=== PATIENT | female | born 1995 | race Caucasian/White ===

== ENCOUNTER 2020-12-19 09:13 | Emergency (ER) | payer SELFPAY ==
[~2020-12-19] VITALS: Ht 175.8 cm; Wt 104.3 kg
--- OUTSIDE RECORDS SUMMARY | 2020-12-19 09:18 | XMS REPORT | Clinical Summary ---
Author Author [facility] Organization [facility] Address Unknown Phone Unavailable Care Team Providers Care Fruit And Vegetable Parer Name Role Phone Tiffanie Rodríguez DO PP Allergies Comments Active Allergy Reactions Severity Noted Date Prednisone Panic High 06/06/2018 Medications End Date Status Medication Sig Dispensed Refills Start Date Active lansoprazole (PREVACID Take by 0 ORAL) mouth. Active MAGNESIUM ORAL Take 1 Tablet 0 by mouth daily coil cleaner. Active ibuprofen (ADVIL,MOTRIN) 400 mg every 0 400 mg tablet 6 hours as needed. Active multivitamin (THERAGRAN) Take 1 tablet 0 tablet tablet by mouth daily. Active LORazepam (ATIVAN) 1 mg TAKE 1 TABLET 30 tablet 0 tabletIndications: BY MOUTH 9 Tourette's disorder, EVERY DAY Anxiety NEEDED FOR ANXIETY Active fluvoxaMINE (LUVOX) 100 TAKE 1 AND 90 tablet 0 mg tabletIndications: 1/2 9 Tourette's disorder TABLETS(150 MG) BY MOUTH TWICE DAILY Active benztropine (COGENTIN) 2 TAKE /2 30 tablet 0 1 mg tabletIndications: TABLET(1 MG) 9 Tourette's disorder BY MOUTH TWICE DAILY Active loxapine (LOXITANE) 50 mg TAKE 1 30 capsule 0 capsuleIndications: CAPSULE(50 9 Tourette's disorder MG) BY MOUTH TWICE DAILY Active biotin 1 mg capsule Take 1 tablet 0 by mouth. Active cetirizine (ZyrTEC) 10 mg Take 10 mg by 0 tablet mouth. Active escitalopram (LEXAPRO) 20 TAKE 1 AND 0 05/11 mg tablet 1/2 TABLETS 1 BY MOUTH EVERY NIGHT AT BEDTIME Active guaiFENesin (MUCINEX) 600 Take 1,200 mg 0 mg 12 hr tablet by mouth. Active benztropine (COGENTIN) 2 Take 2 mg by 0 mg tablet mouth. Active magnesium oxide 250 mg Take 250 mg 0 magnesium tablet by mouth. Active fluvoxaMINE 150 mg Take 150 mg 0 capsule,extended release by mouth. 24hr Active LORazepam (ATIVAN) 0.5 mg Take 1 mg by 0 tablet mouth. Active lansoprazole (PREVACID) Take 15 mg by 0 15 mg capsule mouth. Active vitamin B comp and C no.3 Take 1 tablet 0 66-74-58-5-300 mg capsule by mouth. 06/25/2021 Active albuterol HFA (Ventolin Inhale 2 8.5 g 5 HFA) 90 mcg/actuation puffs every 4 1 inhalerIndications: (four) hours Atypical pneumonia if needed for wheezing or shortness of breath. Active Problems Problem Noted Date Leukocytosis 06/25/2020 Vocal cord strain 06/25/2020 Last Assessment & Plan: Formatting of this note might be differ ent from the original. Discussed vocal rest, which is difficul t given her tourette's, as well as hydration. Will also send referral to [facility]. Pain in both upper extremities 06/25/2020 Last Assessment & Plan: Formatting of this note might be differ ent from the original. S/p blood draws and IVs, no phlebitis a ppreciated, no significant tenderness. Supportive care. Atypical pneumonia 06/05/2020 Last Assessment & Plan: Formatting of this note might be differ ent from the original. Improving, recommend using incentive sp irometer regularly. Will recheck CBC and CMP. Class 3 severe obesity due to excess calories with se rious comorbidity and 06/05/2020 body mass index (BMI) of 40.0 to 44.9 i n adult Hallucinations 06/05/2020 OCD (obsessive compulsive disorder) 06/05/2020 Sepsis due to undetermined organism 06/05/2020 Spasm of diaphragm 10/22/2018 Overview: Formatting of this note might be differ ent from the original. Increase fluids. Reassurance. Mixed obsessional thoughts and acts 02/27/2018 Last Assessment & Plan: Formatting of this note might be differ ent from the original. Controlled on current meds, awaiting [facility] referral. Anxiety 02/27/2018 Last Assessment & Plan: Formatting of this note might be differ ent from the original. Controlled on current meds. Pt is takmelinda lacey lorazepam infrequently. 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 Tourette's syndrome 04/16/2014 Last Assessment & Plan: Formatting of this note might be differ ent from the original. Psychological condition is worsening. Referral to psychiatry. Psychological condition will be reasse ssed in 4 weeks. Immunizations Name Administration Dates Next Due DTaP 08/21/1996, 12/25/1995, , 01/26/1995, 1994 Hep B 07/01/2011, 11/12/2008 Hepatitis B 1994 HiB 12/25/1995, 04/06/1995, , 1994 IPV 09/09/1999 Influenza (IM) 06/09/2020 Preservative Free MMR 09/09/1999, 12/24/1997 Polio, Unspecified 04/06/1995, 01/26/1995, Tdap 11/12/2008, 09/09/1999 Varicella 11/12/2008 Family History Medical History Relation Name Comments OCD Father Diabetes Paternal Grandfather Diabetes Paternal Grandmother Relation Name Status Comments Father Paternal Grandfather Paternal Grandmother Social History Date Tobacco Use Types Packs/Day Years Used Never Smoker Smokeless Tobacco: Never Used Comments Alcohol Use Standard Drinks/Week Never 0 (1 standard drink = 0.6 o z pure alcohol) Alcohol Habits Answer Date Recorded How often do you have a drink containing alcohol? Never 02/27/2018 How many drinks containing alcohol do you have on No t asked a typical day when you are drinking? How often do you have six or more drinks on one Not asked occasion? Comment: Not asked Sex Assigned at Date Recorded Not on file Industry Job Start Date Occupation Not on file Not on file Not on file Last Filed Vital Signs Reading Time Taken Comments Vital Sign 126/84 06/25/2020 4:12 PM CDT Blood Pressure 130 06/25/2020 4:12 PM CDT left pulseox on finger for several minutes and never changed Pulse 36.4 C (97.5 F) 06/25/2020 4:12 PM CDT Temperature - - Respiratory Rate 97% 06/25/2020 4:12 PM CDT Oxygen Saturation - - Inhaled Oxygen Concentration 153 kg (337 lb) 06/25/2020 4:12 PM CDT Weight 177.8 cm (5' 10") 06/25/2020 4:12 PM CDT Height 48.35 06/25/2020 4:12 PM CDT Body Mass Index Plan of Treatment Health Maintenance Due Date Last Done Comments HPV Vaccines (1 - 2-dose 2005 series) COVID-19 Vaccine (1) 2006 Varicella Vaccines (2 of 12/10/2008 11/12/2008 2 - 13+ 2-dose series) Pap Smear 09/16/2015 Depression Screening 02/27/2019 02/27/2018 Lipid Panel 02/27/2023 02/27/2018 DTaP,Tdap,and Td Vaccines 04/10/2027 04/10/2017, (8 - Td or Tdap) 11/12/2008, 09/09/1999, Additional history exists HIB Vaccines Completed 12/25/1995, 04/06/1995, 01/26/1995, Additional history exists IPV Vaccines Completed 09/09/1999, 04/06/1995, 01/26/1995, Additional history exists MMR Vaccines Completed 09/09/1999, 12/24/1997 Hepatitis B Vaccines Completed 07/01/2011, 11/12/2008, 1994 Influenza Vaccine Discontinued 06/09/2020 Hepatitis A Vaccines Aged Out No longer eligibl e based on patient's age to complete this topic Meningococcal Vaccine Aged Out No longer eligib le based on patient's age to complete this topic Pneumococcal Aged Out No longer eligible based on patient's age to complete this topic Results Not on filefrom Last 3 Months Insurance Type Payer Benefit Subscriber ID Effective Phone Address Plan / Dates Group [employer] [id number] 2018-P [phone] [address] [id number] [place] [address] Advance Directives Patient Weight Loss Counselor Explanation Type Date Recorded Advance Directives and Living Will Power of Oracle Fusion Middleware Developer Care Teams Start Date End Date Fruit And Vegetable Parer Relationship Specialty 01/16/18 Tiffanie Rodríguez DO PCP - [address] [address]
--- NOTE | 2020-12-19 09:55 | ED Psychosocial ---
General Chief Complaint: Psych/Social Disorder Stated Complaint: HALLUCINATIONS; PARANOIA Nursing Triage Note: PT ARRIVED BY PRIVATE VEHICLE WITH CHIEF COMPLAINT OF HALLUCINATING. PT WAS ALERT, ORIENTED X 4 AND AMBULATORY. PT WAS WITH HER FATHER. PT HAS HISTORY OF OCD AND TOURETTE'S. DAD STATED THAT ONSET WAS ABOUT ONE MONTH AGO WITH SYMPTOMS. SHE WAS AT HER MOTHER'S HOUSE IN [place] AND WAS AT A HOUSE A BLOCK AWAY, AND WAS CONFUSED. SHE DID NOT KNOW WHERE SHE WAS AT, SO THE COUPLE CALLED 911 AND THEY CALLED HER DAD. SHE WAS TAKEN TO ER WHERE THEY DIAGNOSED WITH A UTI AND HAS BEEN TREATED WITH 3 DIFFERENT ANTIBIOTICS. PT HAS BEEN VISITING HER DAD HERE IN . THEY WERE AT THE [facility] A WEEK AGO AND SHE STATED SHE WAS GOING TO THE BATHROOM. 10 MINUTES WENT BY AND HE WENT TO FIND HER AND SHE WAS NOWHERE TO BE FOUND. HER DAD WENT OUTSIDE TO FIND HER IN THE PARKING LOT WITH THE POLICE CONFUSED. PT HAS HAD SOME MEDICATION CHANGES, BUT THE LAST WEEK HAVE GOTTEN WORSE. PT WAS STAYING WITH PATERNAL GRANDPARENTS THIS MORNING AND CALLED 911. DAD STATED SHE HAS BEEN SCARED OF THE NEIGHBORS, CARS, [place], SAYING SHE IS ALLERGIC TO EVERYTHING. SHE IS SEEING PEOPLE OUTSIDE HER WINDOW SAYING THEY ARE GOING TO BREAK IN. DAD STATED SHE HAS HAD WEIGHT LOSS THE LAST 5-6 ABOUT 100 LBS. DAD STATED SHE IS NOT EXERCISING OR ANYTHING TO CAUSE THE WEIGHT LOSS. PT IS ALLERGIC TO PREDNISONE. PT'S VITALS WERE DONE ON ARRIVAL. Source: patient, father History of Present Illness Date Seen by Provider: Dec 19, 2020 Time Seen by Provider: 09:17 Initial Comments 25-year-old female presenting with her father to the emergency department. She has been having hallucinations and increased paranoia over the last month. She had confusion where she claims she did not know who she was or where she was out. She has called police thinking that someone was breaking into the house. She had left her mother's house a month ago and was found to walk away confused and not knowing what was going on. She was found to have a urinary tract infection at that time. She has been on different antibiotics since then. Her urine infection is reportedly been clean for over a week now. However in the last week she has continued to have increasing episodes of hallucinations and paranoia while she has been here in [place] with her father and grandparents. She usually lives in [place] with her mother. She denies any drug use. She does have trouble concentrating and focusing. She is on medications for OCD and Tourette's and dad states that those have been stable. Associated Symptoms: anxiety, impaired concentration Allergies and Home Medications Allergies Coded Allergies: No Known Drug Allergies (Unverified , 12/19/20) Patient Home Medication List Home Medication List Reviewed: Yes Review of Systems Constitutional: fever (subjective) EENTM: nose congestion ("seasonal allergies") Respiratory: cough (occasional) Cardiovascular: no symptoms reported Gastrointestinal: No abdominal pain, No diarrhea, No nausea, No vomiting Genitourinary: No dysuria Musculoskeletal: no symptoms reported Skin: no symptoms reported Psychiatric/Neurological: See HPI, Anxiety, Emotional Problems Past [id number]-[id number] Hx Patient Social History Tobacco Use?: No Smoking Status: Never a Smoker Smokeless Tobacco Frequency: Never a User Substance use?: No Alcohol Use?: No Pt feels they are or have been: No Past Medical History Surgery/Hospitalization HX: OCD, Tourrette's Physical Exam Vital Signs - First Documented 12/19/20 09:15 Temp 36.8 Pulse 113 Resp 16 B/P (MAP) 131/82 (98) Pulse Ox 95 O2 Delivery Room Air Capillary Refill : Height, Weight, BMI Height: '" Weight: lbs. oz. 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 nml as tested, no motor/sensory deficits, alert, oriented x 3 Appearance/Memory: disheveled Behavior/Eye Contact: cooperative Thoughts/Hallucinations: auditory hallucinations, paranoid, visual hallucinations Skin: normal color, warm/dry Progress/Results/Core Measures Results/Orders Lab Results Laboratory Tests Test 12/19/20 09:45 12/19/20 09:50 Range/Units Urine Color YELLOW Urine Clarity CLOUDY Urine pH 6.0 5-9 Urine Specific Phyllis >=1.030 1.016-1.022 Urine Protein NEGATIVE NEGATIVE Urine Glucose (UA) NEGATIVE NEGATIVE Urine Ketones TRACE H NEGATIVE Urine Nitrite NEGATIVE NEGATIVE Urine Bilirubin 1+ H NEGATIVE Urine Urobilinogen 0.2 < = 1.0 MG/DL Urine Leukocyte Esterase TRACE H NEGATIVE Urine RBC (Auto) 3+ H NEGATIVE Urine RBC 5-10 H /HPF Urine WBC 25-50 H /HPF Urine Squamous Epithelial Cells 10-25 H /HPF Urine Crystals NONE /LPF Urine Bacteria TRACE /HPF Urine Casts NONE /LPF Urine Mucus LARGE H /LPF Urine Culture Indicated YES Urine Opiates Screen NEGATIVE NEGATIVE Urine Oxycodone Screen NEGATIVE NEGATIVE Urine Methadone Screen NEGATIVE NEGATIVE Urine Propoxyphene Screen NEGATIVE NEGATIVE Urine Barbiturates Screen NEGATIVE NEGATIVE Ur Tricyclic Antidepressants Screen NEGATIVE NEGATIVE Urine Phencyclidine Screen NEGATIVE NEGATIVE Urine Amphetamines Screen NEGATIVE NEGATIVE Urine Methamphetamines Screen NEGATIVE NEGATIVE Urine Benzodiazepines Screen NEGATIVE NEGATIVE Urine Cocaine Screen NEGATIVE NEGATIVE Urine Cannabinoids Screen NEGATIVE NEGATIVE White Blood Count 7.3 4.3-11.0 10^3/uL Red Blood Count 4.56 3.80-5.11 10^6/uL Hemoglobin 13.6 11.5-16.0 g/dL Hematocrit 42 35-52 % Mean Corpuscular Volume 92 80-99 fL Mean Corpuscular Hemoglobin 30 25-34 pg Mean Corpuscular Hemoglobin Concent 32 32-36 g/dL Red Cell Distribution Width 13.2 10.0-14.5 % Platelet Count 283 130-400 10^3/uL Mean Platelet Volume 10.5 9.0-12.2 fL Immature Granulocyte % (Auto) 0 % Neutrophils (%) (Auto) 65 42-75 % Lymphocytes (%) (Auto) 26 12-44 % Monocytes (%) (Auto) 7 0-12 % Eosinophils (%) (Auto) 2 0-10 % Basophils (%) (Auto) 1 0-10 % Neutrophils # (Auto) 4.7 1.8-7.8 X 10^3 Lymphocytes # (Auto) 1.9 1.0-4.0 X 10^3 Monocytes # (Auto) 0.5 0.0-1.0 X 10^3 Eosinophils # (Auto) 0.1 0.0-0.3 10^3/uL Basophils # (Auto) 0.1 0.0-0.1 10^3/uL Immature Granulocyte # (Auto) 0.0 0.0-0.1 10^3/uL Sodium Level 142 135-145 MMOL/L Potassium Level 3.7 3.6-5.0 MMOL/L Chloride Level 105 98-107 MMOL/L Carbon Dioxide Level 24 21-32 MMOL/L Anion Gap 13 5-14 MMOL/L Blood Urea Nitrogen 13 7-18 MG/DL Creatinine 0.60 0.60-1.30 MG/DL Estimat Glomerular Filtration Rate 121 BUN/Creatinine Ratio 22 Glucose Level 98 70-105 MG/DL Calcium Level 9.7 8.5-10.1 MG/DL Corrected Calcium 9.4 8.5-10.1 MG/DL Total Bilirubin 0.4 0.1-1.0 MG/DL Aspartate Amino Transf (AST/SGOT) 23 5-34 U/L Alanine Aminotransferase (ALT/SGPT) 30 0-55 U/L Alkaline Phosphatase 83 40-136 U/L Total Protein 7.7 6.4-8.2 GM/DL Albumin 4.4 3.2-4.5 GM/DL Salicylates Level < 0.3 L 5.0-20.0 MG/DL Acetaminophen Level < 10 L 10-30 UG/ML Serum Alcohol < 10 <10 MG/DL My Orders Orders - ELAINE IBARRA MD Ua Culture If Indicated (12/19/20 09:25) Cbc With Automated Diff (12/19/20:25) Comprehensive Metabolic Panel (12/19/20:) Alcohol (12/19/20:25) Drug Screen Stat (Urine) (12/19/20:25) Acetaminophen (12/19/20:25) Salicylate (12/19/20:) Ekg Tracing (12/19/20:25) Bh Status Checks/Observation Q15M (12/19/20:25) Urine Bedside (12/19/20:25) Urine Culture (12/19/20 09:45) Vital Signs/I&O 12/19/20 12/19/20 09:15 13:14 Temp 36.8 36.3 Pulse 113 80 Resp 16 19 B/P (MAP) 131/82 (98) 123/72 Pulse Ox 95 100 O2 Delivery Room Air Room Air Blood Pressure Mean: 98 Progress Progress Note #1: Progress Note Obtain basic labs and urine and EKG to medically evaluate patient. Once these are back if she is medically clear and stable will contact [facility] to see about a mental health screening. Progress Note #2: Progress Note Labs are all stable and clear CBC and Chemistry without acute significant abnormality. UDS negative and Alcohol, Acetaminophen and Salicylates all negati ve. UA does show signs of infection with WBC and LE and Bacteria and concentrated with elevated specific gravity so she likely needs to drink more water. Will plan on starting her on antibiotic for UTI and initiate a mental health screening for her paranoia and hallucinations. Progress Note #3: Progress Note After discussion with patient and father they felt that she did not need to be on antibiotic again right now. Dad reports that she has been on 3 antibiotics in the last month and has only been off of antibiotics for a week. Since the patient has not had any symptoms of UTI but did show bacteria and white blood cells in her urine will hold off until culture results come back. In the meantime encourage fluids and hydration. Progress Note #4: Progress Note After mental health finished with her screening it was felt that the patient was safe for discharge to home with family with a safety plan. She will have a visit with mental health on Monday and be given crisis numbers for the weekend. Initial ECG Impression Date: Dec 19, 2020 Initial ECG Impression Time: 09:54 Initial ECG Rate: 95 Initial ECG Rhythm: Normal Sinus Initial ECG Comparisson: No Previous ECG Available Comment Normal sinus rhythm with a heart rate of 95 bpm. ID interval 181 ms. QT interval 346 ms with a QTc interval 435 ms. There is no acute ST elevation. There is no prior tracing level for comparison. Departure Impression Primary Impression: Paranoia Additional Impressions: Hallucinations Dehydration Bacteriuria Disposition: 01 HOME, SELF-CARE Condition: Stable Departure-Patient Inst. Decision time for Depature: 12:59 Referrals: NO,LOCAL PHYSICIAN (PCP/Family) Primary Care Physician Patient Instructions: OUTPT MENTAL HEALTH SERVICES, Dehydration, Adult ED Add. Discharge Instructions: Follow safety plan as set up with screener from [facility] today. If the urine culture shows infection in the bladder in 3-4 days then you will get a call to see about starting antibiotics. Drink more water and stay better hydrated. Continue on your regular medicines All discharge instructions reviewed with patient and/or family. Voiced understanding. ELAINE IBARRA MD Dec 19, 2020 09:55
[2020-12-19 09:59] LABS: BILIRUBIN,URINE 1+ (NEGATIVE); CLARITY,URINE CLOUDY; COLOR,URINE YELLOW; GLUCOSE, URINE (UA) NEGATIVE (NEGATIVE); KETONES,URINE TRACE (NEGATIVE); LEUKOCYTE ESTERASE ,URINE TRACE (NEGATIVE); NITRITE,URINE NEGATIVE (NEGATIVE); PROTEIN,URINE NEGATIVE (NEGATIVE)
[2020-12-19 10:00] LABS: BACTERIA,URINE TRACE /HPF; WBC,URINE 25-50 /HPF
[2020-12-19 10:05] LABS: WHITE BLOOD COUNT 7.3 10^3/uL (4.3-11.0)
[2020-12-19 10:06] LABS: BASOPHILS # (AUTO) 0.1 10^3/uL (0.0-0.1); BASOPHILS % (AUTO) 1 % (0-10); EOSINOPHILS # (AUTO) 0.1 10^3/uL (0.0-0.3); EOSINOPHILS % (AUTO) 2 % (0-10); HEMATOCRIT 42 % (35-52); HEMOGLOBIN 13.6 g/dL (11.5-16.0); LYMPHOCYTES # (AUTO) 1.9 X 10^3 (1.0-4.0); LYMPHOCYTES % (AUTO) 26 % (12-44); MEAN CORPUSCULAR HEMOGLOBIN 30 pg (25-34); MEAN CORPUSCULAR HGB CONC 32 g/dL (32-36); MEAN CORPUSCULAR VOLUME 92 fL (80-99); MEAN PLATELET VOLUME 10.5 fL (9.0-12.2); MONOCYTES # (AUTO) 0.5 X 10^3 (0.0-1.0); MONOCYTES % (AUTO) 7 % (0-12); NEUTROPHILS # (AUTO) 4.7 X 10^3 (1.8-7.8); NEUTROPHILS % (AUTO) 65 % (42-75); PLATELET COUNT 283 10^3/uL (130-400)
[2020-12-19 10:07] LABS: AMPHETAMINE SCREEN, URINE NEGATIVE (NEGATIVE); BARBITURATE SCREEN URINE NEGATIVE (NEGATIVE); BENZODIAZEPINES SCREEN URINE NEGATIVE (NEGATIVE); CANNABINOID SCREEN, URINE NEGATIVE (NEGATIVE); COCAINE SCREEN URINE NEGATIVE (NEGATIVE); METHADONE STAT NEGATIVE (NEGATIVE); METHAMPHETAMINE SCREEN URINE S NEGATIVE (NEGATIVE); OPIATE SCREEN URINE NEGATIVE (NEGATIVE); OXYCODONE STAT NEGATIVE (NEGATIVE); PROPOXYPHENE STAT NEGATIVE (NEGATIVE); TRICYCLIC ANTIDEPRESSANTS SCRE NEGATIVE (NEGATIVE)
[2020-12-19 10:34] LABS: ACETAMINOPHEN < 10 UG/ML (10-30); ALANINE AMINOTRANSFERASE 30 U/L (0-55); ALBUMIN 4.4 GM/DL (3.2-4.5); ALKALINE PHOSPHATASE 83 U/L (40-136); BILIRUBIN,TOTAL 0.4 MG/DL (0.1-1.0); BUN/CREATININE RATIO 22; CALCIUM 9.7 MG/DL (8.5-10.1); CARBON DIOXIDE 24 MMOL/L (21-32); CHLORIDE 105 MMOL/L (98-107); GFR ESTIMATED 121; GLUCOSE 98 MG/DL (70-105); POTASSIUM 3.7 MMOL/L (3.6-5.0); SALICYLATE < 0.3 MG/DL (5.0-20.0); SODIUM 142 MMOL/L (135-145); TOTAL PROTEIN 7.7 GM/DL (6.4-8.2)
[2020-12-19 13:14] VITALS: BP 123/72
== END 2020-12-19 13:14 | disposition home or self-care (01) ==
LOC: EDUNIT# 09:13 → ER FS 09:16
DX: F22 Delusional disorders (principal); E86.0 Dehydration; R82.71 Bacteriuria
CPT/HCPCS: 36415; 80053; 80306; 81000; 84703; 85025; 87088; 99283; G0480 ×3; 80320; 80329; 93005